=== PATIENT | female | born 1965 | race African-American/Black ===

== ENCOUNTER 2017-09-14 10:59 | Emergency (ER) | payer OTHER ==
[~2017-09-14] VITALS: Ht 162.6 cm; Wt 78.5 kg
[2017-09-14 11:27] VITALS: BP 115/75
--- NOTE | 2017-09-14 12:48 | Emergency Room Report ---
History of Present Illness General Chief Complaint: General Complaint Source: Patient Present Illness HPI This patient states that she has had nasal congestion and pressure for the past 3 days. She states that she had influenza about a month ago but had been clear over that now for about 2 weeks. She denies headache. She denies fever or chills. She denies nausea or vomiting. She states she has had nasal congestion. She denies cough. She denies chest pain or abdominal pain. She has no other complaints. Allergies: Coded Allergies: ASPIRIN (Verified Allergy, Severe, Hives, 09/14/17) Patient History Past Medical History: none, asthma Past Surgical History: other - Neck surgery Social History: Denies: smoking, alcohol use, drug use Last Menstrual Period: none Now: No Reviewed Nursing Documentation: PMH: Agreed, PSxH: Agreed Nursing Documentation-PMH Past Medical History: No History, Except For Review of Systems All Other Systems: negative except mentioned in HPI Physical Exam Vital Signs Date Time Temp Pulse Resp B/P (MAP) Pulse Ox O2 Delivery O2 Flow Rate FiO2 09/14/17 11:12 97.5 81 20 115/75 100 Room Air 97.5 Sp02 EP Interpretation: reviewed, normal General Appearance: no apparent distress, alert, GCS 15, non-toxic Head: normocephalic, atraumatic Eyes: bilateral eye normal inspection, bilateral eye PERRL ENT: hearing grossly normal, normal pharynx, no angioedema, normal voice Neck: full range of motion, supple/symm/no masses Respiratory: chest non-tender, lungs clear, normal breath sounds, speaking full sentences Cardiovascular #1: regular rate, rhythm, no edema Gastrointestinal: normal bowel sounds, non tender, soft, non-distended, no guarding, no rebound Rectal: deferred Musculoskeletal: back normal, gait/station normal, normal range of motion, non- tender Neurologic: alert, oriented x3, responsive, motor strength/tone normal, sensory intact, speech normal Psychiatric: judgement/insight normal, memory normal, mood/affect normal, no suicidal/homicidal ideation Skin: normal color, no rash, warm/dry, well hydrated Medical Decision Making Diagnostic Impression: Primary Impression: URI (upper respiratory infection) ER Course This patient has a clinical presentation with upper respiratory tract infection. The evaluation was very reassuring with a normal lung exam, no respiratory distress, normal pulse oximetry. I am not concerned for pneumonia in this patient. This is most likely viral and will not need antibiotic therapy. I will treat supportively with nasal decongestants, in addition to adding Claritin as there may be an allergy component. No emergency medical condition was identified. Last Vital Signs Date Time Temp Pulse Resp B/P (MAP) Pulse Ox O2 Delivery O2 Flow Rate FiO2 09/14/17 11:33 81 20 Room Air 09/14/17 11:27 97.5 115/75 100 97.5 Status: improved Disposition: HOME, SELF-CARE Condition: Improved CHAD ALMEIDA D.O. Sep 14, 2017 12:48
[2017-09-14] MEDS ORDERED: SALINE NASAL SP45 ML NASAL ×2 (12:52→15:51)
[2017-09-14] MEDS ORDERED: CLARITIN10 MG ORAL (12:52)
[2017-09-14] MEDS ORDERED: PSEUDOEPHEDRINE60 MG PO ×2 (12:52→15:51)
[2017-09-14 13:32] VITALS: BP 115/75
[2017-09-14] MEDS ORDERED: LORATADINE10 M3 PO (15:51)
== END 2017-09-14 13:33 | disposition home or self-care (01) ==
LOC: EMR 12:30
DX: J06.9 Acute upper respiratory infection, unspecified (principal); Z88.6 Allergy status to analgesic agent
CPT/HCPCS: 99283

== ENCOUNTER 2017-12-15 23:26 | Emergency (ER) | payer OTHER ==
[~2017-12-15] VITALS: Ht 162.6 cm; Wt 77.1 kg
[~2017-12-15 23:26] MED LIST: CLARITIN10 MG ORAL; LORATADINE10 M3 PO; PSEUDOEPHEDRINE60 MG PO; SALINE NASAL SP45 ML NASAL
[2017-12-16] MEDS ORDERED: TRAMADOL HCL50 MG ORAL (00:02)
[2017-12-16 00:05] VITALS: BP 138/86
[2017-12-16] MEDS ORDERED: IBUPROFEN600 MG ORAL (00:25)
[2017-12-16] MEDS ORDERED: ZITHROMAX250 MG ORAL (00:25)
--- NOTE | 2017-12-16 00:26 | Emergency Room Report ---
History of Present Illness General Chief Complaint: General Complaint Source: Patient Present Illness HPI Is a 52-year-old female with no significant past medical history. She presents with treatment of sore throat. This been ongoing for about a week. No fever chills but no nausea no vomiting. No cough or congestion. Worse with swallowing. No relief with [id number] medication. Allergies: Coded Allergies: ASPIRIN (Verified Allergy, Severe, Hives, 09/14/17) Patient History Past Medical History: see triage record, old chart reviewed Past Surgical History: other Pertinent Family History: none Social History: Denies: smoking Now: No Immunizations: other Reviewed Nursing Documentation: PMH: Agreed; PSxH: Agreed Nursing Documentation-PMH Past Medical History: No History, Except For Review of Systems Eye: Denies: eye pain, blurred vision ENT: Reports: throat pain; Denies: ear pain, nose congestion, throat swelling Respiratory: Denies: cough, shortness of breath Cardiovascular: Denies: chest pain, palpitations Gastrointestinal: Denies: abdominal pain, diarrhea, nausea, vomiting Musculoskeletal: Denies: back pain, joint pain Skin: Denies: rash Neurological: Denies: headache, numbness Endocrine: Denies: increased thirst, increased urine Hematologic/Lymphatic: Denies: easy bruising All Other Systems: negative except mentioned in HPI Physical Exam Vital Signs Date Time Temp Pulse Resp B/P (MAP) Pulse Ox O2 Delivery O2 Flow Rate FiO2 12/15/17 23:59 98.3 75 20 138/86 98 Room Air 98.2 vitals unremarkable Sp02 EP Interpretation: reviewed, normal General Appearance: well appearing, no apparent distress, alert Head: normocephalic, atraumatic Eyes: bilateral eye PERRL, bilateral eye EOMI ENT: hearing grossly normal, tonsillar swelling, pharyngeal erythema, other Neck: full range of motion, supple, no meningismus Respiratory: chest non-tender, lungs clear, normal breath sounds Cardiovascular #1: regular rate, rhythm, no murmur Gastrointestinal: normal bowel sounds, non tender, no mass, no organomegaly, no bruit, non-distended Musculoskeletal: back normal, gait/station normal, normal range of motion Psychiatric: mood/affect normal Skin: warm/dry Medical Decision Making Diagnostic Impression: Primary Impression: Pharyngitis, acute Qualified Codes: J02.9 - Acute pharyngitis, unspecified ER Course patient with an acute pharyngitis. May be viral but she has no other symptoms like cough or congestion. No fever or exudates to point towards strep. There is no evidence of peritonsillar abscess, retropharyngeal abscess or Robert angina. Because of the duration will going put on antibiotics. Last Vital Signs Date Time Temp Pulse Resp B/P (MAP) Pulse Ox O2 Delivery O2 Flow Rate FiO2 12/15/17 23:59 98.3 75 20 138/86 98 Room Air 98.2 Status: unchanged Disposition: HOME, SELF-CARE Condition: Stable Scripts Azithromycin* (ZITHROMAX*) 250 Mg Tablet 250 MG ORAL DAILY, #6 TAB 0 Refills Take two tables once daily for 1 day, then one tablet once daily for 4 days. Prov: DIONI ALEXANDER M.D. 12/16/17 Ibuprofen* (MOTRIN*) 600 Mg Tablet 600 MG ORAL THREE TIMES A DAY, #30 TAB 0 Refills Prov: DIONI ALEXANEDR M.D. 12/16/17 Referrals: [facility]ERR[facility] (PCP) Additional Instructions: Follow-up with your doctor in 7 days. Increase fluid. Salt water gargle. Return if worse. DIONI ALEXANDER M.D. Dec 16, 2017 00:26
[2017-12-16] MEDS ORDERED: Dexamethasone 4mg/ml vial IM ONE (00:45)
[2017-12-16 00:51] VITALS: BP 138/86
== END 2017-12-16 00:52 | disposition home or self-care (01) ==
LOC: EMR 12-16 00:10
DX: J02.9 Acute pharyngitis, unspecified (principal); Z88.6 Allergy status to analgesic agent
CPT/HCPCS: 96372; 99284; J1100; J7512